=== PATIENT | female | born 1980 | race Two or more races ===

== ENCOUNTER 2021-03-22 21:42 | Emergency (ER) | payer OTHER ==
[~2021-03-22] VITALS: Ht 152.4 cm; Wt 54.4 kg
== END 2021-03-22 23:24 | disposition home or self-care (01) ==
LOC: ER 21:42
DX: T19.2XXA Foreign body in vulva and vagina, initial encounter (principal); W45.8XXA Other foreign body or object entering through skin, initial encounter; Y93.89 Activity, other specified; Y92.89 Other specified places as the place of occurrence of the external cause; Y99.8 Other external cause status

== ENCOUNTER 2023-02-01 02:45 | Emergency (ER) | payer OTHER ==
[~2023-02-01] VITALS: Ht 160 cm; Wt 49.9 kg
[2023-02-01] MEDS ORDERED: KETO10TA2 PO (06:25)
[2023-02-01] MEDS ORDERED: CLEOCIN HCL300 MG PO (06:25)
== END 2023-02-01 06:34 | disposition home or self-care (01) ==
LOC: ER 02:45
DX: K04.7 Periapical abscess without sinus (principal); Z91.041 Radiographic dye allergy status